=== PATIENT | female | born 1950 | race Hispanic/Latino ===

== ENCOUNTER 2016-12-23 06:09 | Day surgery (SDC) | payer MEDICARE ==
--- NOTE | 2016-12-23 07:23 | Anesthesia Consultation ---
Anesthesia Consult and Med Hx Date of service: 12/23/16 - Airway Anesthetic Teeth Evaluation: Poor, Dentures ROM Head & Neck: Adequate Mental/Hyoid Distance: Adequate Mallampati Class: Class II Intubation Access Assessment: Good - Pulmonary Exam CTA: Yes - Cardiac Exam Cardiac Exam: RRR - Pre-Operative Health Status ASA Pre-Surgery Classification: ASA3 Proposed Anesthetic Plan: MAC - Pre-Anesthesia Comment Pre-Anesthesia Comments: upper full plate, missing lower teeth - Pulmonary Hx Smoking: Yes (1/2 ppd) Hx Asthma: Yes (asthmatic bronchitis) Hx Respiratory Symptoms: Yes - Central Nervous System Hx Seizures: Yes (last 2000) - Endocrine Hx Hypothyroidism: Yes
--- NOTE | 2016-12-23 07:23 | Anesthesia Day of Surgery ---
Anesthesia Day of Surgery - Day of Surgery Patient Examined: Yes Patient H&P Reviewed: Yes Patient is NPO: Yes
[2016-12-23] MEDS ORDERED: WATER FOR IRRIG STERILE IR ONE (07:24)
[2016-12-23] MEDS ORDERED: DIPRIVAN 10 MG/ML IV ONE ×2 (07:35)
[2016-12-23] MEDS ORDERED: NACL 0.9% 1000 ML 1,000 ML IV SCH (08:00)
[2016-12-23] MEDS ORDERED: PEPCID IV NR (08:00)
[2016-12-23] MEDS ORDERED: ePHEDrine SULFATE ONE (08:27)
--- NOTE | 2016-12-23 08:28 | Short Stay Summary ---
Short Stay Documentation - Allergies and Medications Current Medications: Allergies No Known Allergies Allergy (Unverified 12/23/16 06:09) Active Medications Famotidine (Pepcid) 20 mg IV PREOP NR Stop: 12/23/16 15:00 Sodium Chloride (Nacl 0.9% 1000 Ml) 1,000 mls @ 75 mls/hr IV DIRECT ANDRIY - Brief post op/procedure progress note Date of procedure: 12/23/16 Pre-op diagnosis: 1. GERD 2. Epigastric pain 3. Colon cancer screening Post-op diagnosis: same (EGD: 1. GERD 2. Gastritis Colonoscopy 1. Colon polyp 2. Poor prep 3. Internal hemorrhoids) Procedure: 1. EGD with biopsy 2. Colonoscopy with snare polypectomy Anesthesia: MAC Findings: as above Surgeon: ALESIA PACHECO Estimated blood loss: none Pathology: list (1. Antrum 2. Transverse colon polyp) Specimen disposition: to lab Condition: stable - Disposition Condition at discharge: Stable Disposition: [id number] TO HOME OR SELFCARE Short Stay Discharge Plan Activity: no restrictions Weight Bearing Status: Full Weight Bearing Diet: regular, low salt Follow up with: KODY WELCH III, [facility] [Primary Care Provider] - 7 Days
--- NOTE | 2016-12-23 08:48 | Post Anesthesia Evaluation ---
- Post Anesthesia Evaluation Patient Participated: Yes Airway Patent: Yes Stable Respiratory Function: Yes Temp > 96.8F: Yes Pain Manageable: Yes Adequeate Hydration: Yes Anesthesia Complications: No
[2016-12-23 08:57] VITALS: BP 104/60
[2016-12-23] MEDS ORDERED: XYLOCAINE MPF 2% ONE (08:58)
== END 2016-12-23 06:10 | disposition home or self-care (01) ==
LOC: GIO 06:09
PROVIDERS: ATTEND Internal Medicine Gastroenterology
DX: Z09 Encounter for follow-up examination after completed treatment for conditions other than malignant neoplasm (principal); K21.9 Gastro-esophageal reflux disease without esophagitis; D12.3 Benign neoplasm of transverse colon; K64.8 Other hemorrhoids; K29.50 Unspecified chronic gastritis without bleeding; K29.00 Acute gastritis without bleeding; F17.210 Nicotine dependence, cigarettes, uncomplicated; I73.00 Raynaud's syndrome without gangrene; J45.909 Unspecified asthma, uncomplicated; E03.9 Hypothyroidism, unspecified; Z87.19 Personal history of other diseases of the digestive system; Z79.899 Other long term (current) drug therapy; Z80.0 Family history of malignant neoplasm of digestive organs
CPT/HCPCS: 43239; 45385; 88305; 88342; J2704; J7030